=== PATIENT | male | born 1960 | race Two or more races ===

== ENCOUNTER 2016-07-21 11:49 | Emergency (ER) | payer OTHER ==
[~2016-07-21] VITALS: Ht 177.8 cm; Wt 86.2 kg
[2016-07-21 12:04] VITALS: BP 145/94
[2016-07-21] MEDS ORDERED: ONDANSETRON HCL 4 MG/2 ML VIAL ONE (12:08)
[2016-07-21] MEDS ORDERED: ONDANSETRON HCL 4 MG/2 ML VIAL IV ONE (12:15)
[2016-07-21] MEDS ORDERED: DIAZEPAM 5 MG/ML 2ML SYRG IV ONE (12:30)
[2016-07-21] MEDS ORDERED: SODIUM CHLORIDE 0.9% 1,000 ML IV ONE (12:30)
[2016-07-21 14:14] LABS: Basophils # (auto) 0 uL; Eosinophils # (auto) 0 uL; Eosinophils % (auto) 0.1 % (0.0-7.0); Lymphocytes # (auto) 1.2 uL; Lymphocytes % (auto) 9.7 % (10.0-50.0); Mean Corpuscular Hemoglobin 30.3 pg (28.0-32.0); Mean Corpuscular Hgb Conc. 33.4 g/dL (32.0-36.0); Mean Corpuscular Volume 90.9 fL (80.0-100.0); Mean Platelet Volume 9.4 fL (7.4-10.4); Monocytes # (auto) 0.5 uL; Monocytes % (auto) 4.3 % (0.0-12.0); Neutrophils # (auto) 10.8 uL; Neutrophils % (auto) 85.9 % (37.0-80.0); Platelet Count (auto) 219 10^3/uL (140-450); Red Cell Distribution Width 12.7 % (11.6-16.0); White Blood Cell 12.6 10^3/uL (4.4-10.8)
[2016-07-21 15:57] LABS: BUN/Creatinine Ratio 14.3; Calcium 8.2 mg/dL (8.5-10.1); Potassium 3.8 mmol/L (3.5-5.1)
[2016-07-21 15:59] LABS: Bilirubin, Total 0.6 mg/dL (0.2-1.0); Total Protein 7.4 g/dL (6.4-8.2)
[2016-07-21] MEDS ORDERED: cefTRIAXone 1GM/50ML D5W 50 ML IV ONE (16:15)
== END 2016-07-21 16:56 | disposition home or self-care (01) ==
LOC: EEVIPCON 11:52 → ER 11:52 → EDBD 11:52 → ER 16:56
DX: E86.0 Dehydration (principal); R42 Dizziness and giddiness; J20.9 Acute bronchitis, unspecified; R53.1 Weakness; R61 Generalized hyperhidrosis
CPT/HCPCS: 36415; 70551; 80053; 82150; 83690; 83735; 84484; 85025; 96361; 96365; 96375; 99285; J0696; J2405; J3360; J7030

== ENCOUNTER → 2019-09-23 | Outpatient (CLI) | payer BC ==
[2019-09-23 12:58] LABS: Alcohol, Urine < 3.0 mg/dL (0-5); Amphetamine Screen, Urine NEGATIVE (NEGATIVE); Barbiturate Scree,Urine NEGATIVE (NEGATIVE); Benzodiazephine Screen, Urine NEGATIVE (NEGATIVE); Cannabinoid Screen, Urine NEGATIVE (NEGATIVE); Cocaine Screen, Urine NEGATIVE (NEGATIVE); Opiate Scree,Urine NEGATIVE (NEGATIVE); Phencyclidine Screen, Urine NEGATIVE (NEGATIVE)
== END | disposition home or self-care (01) ==
LOC: LAB 12:38
PROVIDERS: ATTEND Pathology Anatomic Pathology & Clinical Pathology
DX: Z02.1 Encounter for pre-employment examination (principal)
CPT/HCPCS: 80307

== ENCOUNTER 2019-12-29 08:34 | Emergency (ER) | payer BC, OTHER ==
[~2019-12-29] VITALS: Ht 177.8 cm; Wt 86.2 kg
[2019-12-29 08:52] VITALS: BP 115/80
[2019-12-29 12:21] LABS: Hepatitis B Surface Antibody Positive
[2019-12-29 13:30] LABS: Hepatitis B Surface Antigen Negative (Negative)
== END 2019-12-29 11:41 | disposition home or self-care (01) ==
LOC: ER 08:34 → EEVIPCON 08:34 → ER 11:41
DX: T14.90XA Injury, unspecified, initial encounter (principal); W46.0XXA Contact with hypodermic needle, initial encounter; Y93.89 Activity, other specified; Y92.89 Other specified places as the place of occurrence of the external cause; Y99.8 Other external cause status
CPT/HCPCS: 36415; 86703; 86706; 86803; 87340

== ENCOUNTER 2020-04-29 12:05 | Outpatient (CLI) | payer BC, OTHER ==
[~2020-04-29] VITALS: Ht 30.5 cm; Wt 0.5 kg
[2020-04-29] MEDS ORDERED: BAMLANIVIMAB 700MG/200ML 200 ML IV ONE (12:30)
[2020-05-02] MEDS ORDERED: IOHEXOL 350 MG/ML 100ML IJ ONE (12:44)
== END 2020-04-29 15:15 | disposition home or self-care (01) ==
LOC: ER 12:05
PROVIDERS: ATTEND Internal Medicine
DX: Z20.828 Contact with and (suspected) exposure to other viral communicable diseases (principal); Z98.890 Other specified postprocedural states; Z79.899 Other long term (current) drug therapy

== ENCOUNTER → 2020-05-02 | Emergency (ER) | payer BC ==
[~2020-05-02] VITALS: Ht 30.5 cm; Wt 0.5 kg
[~2020-05-02] MED LIST: REMDESIVIR 100 MG in SODIUM CHL 0.9% 250 ML IV SCH; REMDESIVIR 200 MG in NS 210ml LOADING DOSE ADULT IV ONE
[2020-05-02 11:16] LABS: Basophils # (auto) 0 10 ^3/uL (0-0.2); Basophils % (auto) 0.5 % (0.0-2.0); Eosinophils # (auto) 0 10 ^3/uL (0-0.8); Eosinophils % (auto) 0.1 % (0.0-7.0); Hematocrit 39.8 % (41.0-53.0); Hemoglobin 13.6 g/dL (13.5-17.5); Lymphocytes # (auto) 2.3 10 ^3/uL (0.4-5.4); Lymphocytes % (auto) 23.8 % (10.0-50.0); Mean Corpuscular Hemoglobin 30.7 pg (28.0-32.0); Mean Corpuscular Hgb Conc. 34.1 g/dL (32.0-36.0); Mean Corpuscular Volume 90.1 fL (80.0-100.0); Monocytes # (auto) 1.1 10 ^3/uL (0-1.3); Monocytes % (auto) 11.1 % (0.0-12.0); Neutrophils # (auto) 6.1 10 ^3/uL (1.6-8.6); Neutrophils % (auto) 64.5 % (37.0-80.0); Nucleated Red Blood Cells % 0.1 %; Platelet Count (auto) 196 10^3/uL (140-450); Red Blood Cells 4.42 10^6/uL (4.5-5.90); Red Cell Distribution Width 12.6 % (11.8-14.3); White Blood Cell 9.5 10^3/uL (4.4-10.8)
[2020-05-02 11:38] LABS: Albumin 3.4 g/dL (3.4-5.0); Calcium 9.4 mg/dL (8.5-10.1); Magnesium 2.3 mg/dL (1.6-2.6); Potassium 3.9 mmol/L (3.5-5.1)
[2020-05-02 11:47] LABS: BUN/Creatinine Ratio 23.4; Bilirubin, Total 0.5 mg/dL (0.2-1.0); CRP High Sensitivity 3.12 mg/dL (< 0.3); Total Protein 7.9 g/dL (6.4-8.2)
[2020-05-02 11:58] LABS: Partial Thromboplastin Time 22.6 sec (23.0-31.2)
[2020-05-02 12:19] VITALS: BP 138/92
== END | disposition home or self-care (01) ==
LOC: ER 10:02 → EEVIPCON 10:02
DX: U07.1 COVID-19 (principal)
CPT/HCPCS: 36415; 80053; 82728; 83036; 83615; 83735; 84443; 85025; 85379; 85610; 85730; 86141; 96365; 99284; J7050

== ENCOUNTER → 2020-05-03 | Outpatient (CLI) | payer BC ==
[~2020-05-03] VITALS: Ht 30.5 cm; Wt 0.5 kg
[~2020-05-03] MED LIST changes: +REMDESIVIR 100 MG in SODIUM CHL 0.9% 250 ML IV ONE; -REMDESIVIR 100 MG in SODIUM CHL 0.9% 250 ML IV SCH; -REMDESIVIR 200 MG in NS 210ml LOADING DOSE ADULT IV ONE
[2020-05-03 14:15] VITALS: BP 141/80
[2020-05-03 15:15] VITALS: BP 143/81
--- NOTE | 2020-05-03 15:30 | NUR ---
DISCHARGE PT DECLINED OBSERVATION PERIOD S/P INFUSION.
--- NOTE | 2020-05-03 15:45 | NUR ---
INFUSION SUMMARY 1353 - PHARM CONTACTED TO [facility] INFUSION. 1358 - PT A&O X4, AMBULATORY, RESPIRATIONS EVEN AND NONLABORED, NO SOB. PT EVALUATED AND MEETS CRITERIA FOR INFUSION. CONSENTS SIGNED. PROVIDER AT BEDSIDE FOR PRE INFUSION EVALUATION. PT BASELINE VITALS OBTAINED, VSS, 20 G IV TO RIGHT A/C. 1415 - INFUSION READY AND STARTED. WILL CONTINUE TO MONITOR PT FOR ALLERGIC/ADVERSE REACTIONS. 1515 - INFUSION DC'D. VSS, RESPIRATIONS EVEN AND NONLABORED. NO SS OF ALLERGIC/ADVERSE REACTIONS. WILL CONTINUE TO MONITOR. 1530- PT DISCHARGED AND IV DC'D. IV REMOVED, CATHETER INTACT, NO TRAUMA TO SITE. A&OX4, VS TO BASELINE, RESPIRATIONS EVEN AND NONLABORED. PT EDUCATED ON COVID PRECAUTIONS, TO MONITOR FOR ALLERGIC/ADVERSE REACTIONS, AND TO SELF-ISOLATE. PT ADVISED TO RETURN TO ED IF PT EXPERIENCES S/S OF ALLERGIC/ ACTIONS OR IF CONDITION WORSENS.
== END | disposition home or self-care (01) ==
LOC: ER 14:48
PROVIDERS: ATTEND Internal Medicine
DX: Z45.1 Encounter for adjustment and management of infusion pump (principal)

== ENCOUNTER 2020-05-04 09:08 | Outpatient (CLI) | payer BC ==
[2020-05-04] MEDS ORDERED: REMDESIVIR 100 MG in SODIUM CHL 0.9% 250 ML IV ONE (10:00)
== END 2020-05-04 10:55 | disposition home or self-care (01) ==
LOC: ER 09:08
PROVIDERS: ATTEND Internal Medicine
DX: U07.1 COVID-19 (principal); I10 Essential (primary) hypertension

== ENCOUNTER 2020-05-05 08:57 | Outpatient (CLI) | payer BC ==
[~2020-05-05] VITALS: Ht 30.5 cm; Wt 0.5 kg
[2020-05-05 09:05] VITALS: BP 134/83
[2020-05-05 09:20] VITALS: BP 142/93
[2020-05-05 09:42] VITALS: BP 141/96
[2020-05-07] MEDS ORDERED: REMDESIVIR 100 MG in SODIUM CHL 0.9% 250 ML IV SCH (15:00)
== END 2020-05-05 09:44 | disposition home or self-care (01) ==
LOC: ER 08:57
PROVIDERS: ATTEND Internal Medicine
DX: U07.1 COVID-19 (principal); I10 Essential (primary) hypertension

== ENCOUNTER → 2020-10-19 | Outpatient (CLI) | payer BC | END | disposition home or self-care (01) | LOC: LAB 07:18 | PROVIDERS: ATTEND Internal Medicine | DX: Z20.822 Contact with and (suspected) exposure to COVID-19 (principal) | CPT/HCPCS: C9803; U0003 ==

== ENCOUNTER → 2020-12-14 | Outpatient (CLI) | payer BC | END | disposition home or self-care (01) | LOC: LAB 06:38 | PROVIDERS: ATTEND Internal Medicine | DX: Z20.822 Contact with and (suspected) exposure to COVID-19 (principal) | CPT/HCPCS: C9803; U0003 ==

== ENCOUNTER → 2021-02-18 | Outpatient (CLI) | payer BC | END | disposition home or self-care (01) | LOC: LAB 07:12 | PROVIDERS: ATTEND Internal Medicine | DX: Z20.822 Contact with and (suspected) exposure to COVID-19 (principal) | CPT/HCPCS: C9803; U0003 ==

== ENCOUNTER → 2021-05-31 | Outpatient (CLI) | payer BC | END | disposition home or self-care (01) | LOC: LAB 13:56 | PROVIDERS: ATTEND Internal Medicine | DX: Z20.822 Contact with and (suspected) exposure to COVID-19 (principal) | CPT/HCPCS: 36415; 87426 ==

== ENCOUNTER → 2021-06-24 | Outpatient (CLI) | payer BC | END | disposition home or self-care (01) | LOC: LAB 08:17 | PROVIDERS: ATTEND Internal Medicine | DX: Z20.822 Contact with and (suspected) exposure to COVID-19 (principal) | CPT/HCPCS: 36415; 87426 ==

== ENCOUNTER → 2021-07-08 | Outpatient (CLI) | payer BC | END | disposition home or self-care (01) | LOC: LAB 07:42 | PROVIDERS: ATTEND Internal Medicine | DX: Z20.822 Contact with and (suspected) exposure to COVID-19 (principal) | CPT/HCPCS: 36415; 87426 ==

== ENCOUNTER → 2021-07-22 | Outpatient (CLI) | payer BC | END | disposition home or self-care (01) | LOC: LAB 07:27 | PROVIDERS: ATTEND Internal Medicine | DX: Z20.822 Contact with and (suspected) exposure to COVID-19 (principal) | CPT/HCPCS: 36415; 87426 ==

== ENCOUNTER → 2021-09-30 | Outpatient (CLI) | payer BC | END | disposition home or self-care (01) | LOC: LAB 07:56 | PROVIDERS: ATTEND Internal Medicine | DX: Z20.822 Contact with and (suspected) exposure to COVID-19 (principal) | CPT/HCPCS: 36415 ==

== ENCOUNTER 2021-12-30 17:44 | Emergency (ER) | payer BC ==
[~2021-12-30] VITALS: Ht 177.8 cm; Wt 86.4 kg
[2021-12-30 18:00] VITALS: BP 121/93
[2021-12-30] MEDS ORDERED: ONDANSETRON HCL 4 MG/2 ML VIAL IV ONE (18:00)
[2021-12-30] MEDS ORDERED: SODIUM CHLORIDE 0.9% 1,000 ML IV ONE (18:00)
[2021-12-30] MEDS ORDERED: MECLIZINE HCL 25 MG TAB PO ONE (18:00)
[2021-12-30 18:50] LABS: Calcium 8.7 mg/dL (8.5-10.1); Potassium 3.5 mmol/L (3.5-5.1)
[2021-12-30 18:56] LABS: Albumin 3.5 g/dL (3.4-5.0); BUN/Creatinine Ratio 16.8; Bilirubin, Total 0.6 mg/dL (0.2-1.0); Magnesium 2.4 mg/dL (1.6-2.6)
== END 2021-12-30 19:00 | disposition left against medical advice (07) ==
LOC: EDBD 17:44 → ER 17:44 → EEVIPCON 17:44 → ER 19:00
DX: R42 Dizziness and giddiness (principal); R61 Generalized hyperhidrosis; Z53.29 Procedure and treatment not carried out because of patient's decision for other reasons
CPT/HCPCS: 36415; 80053; 83735; 84484; 85025; 93005; 96361; 96374; 99284; J2405; J7030; J8597

== ENCOUNTER → 2024-12-17 | Day surgery (SDC) | payer OTHER ==
[2024-12-05 10:37] LABS: Hematocrit 40.8 % (41.0-53.0); Hemoglobin 13.7 g/dL (13.5-17.5); Mean Corpuscular Hemoglobin 31.0 pg (28.0-32.0); Mean Corpuscular Volume 92.1 fL (80.0-100.0); Nucleated Red Blood Cells % 0.2 %
[2024-12-05 10:38] LABS: Urine Protein, UAD TRACE (Negative)
[2024-12-05 10:49] LABS: INR 0.97 (0.9-1.15); Partial Thromboplastin Time 29.6 SEC (24.5-34.5); Prothrombin Time 10.3 sec (9.3-11.8)
[2024-12-05 10:57] LABS: Alanine Aminotransferase 20 U/L (7-40); Alkaline Phosphatase 97 U/L (46-116); Anion Gap 9 (5-15); BUN/Creatinine Ratio 13.2 (10.0-20.0); Blood Urea Nitrogen 17 mg/dL (9-23); Calcium 9.9 mg/dL (8.7-10.4); Carbon Dioxide 29 mmol/L (20-31); Chloride 103 mmol/L (98-107); Potassium 4.0 mmol/L (3.5-5.1); Sodium 141 mmol/L (136-145); Total Protein 7.2 g/dL (5.7-8.2)
[2024-12-05 10:58] LABS: Albumin 4.7 g/dL (3.2-4.8); Bilirubin, Total 0.5 mg/dL (0.2-1.0); Glucose 130 mg/dL (74-106)
--- NOTE | 2024-12-05 19:29 | DVH ---
EXAM: XY CHEST PORTABLE CLINICAL HISTORY: PRE-OP TECHNIQUE: Single PA view of the chest WID: COMPARISON: None FINDINGS: Lines and tubes: None Chest: The heart size and pulmonary vasculature is within normal limits. No pleural effusion, pneumothorax, or consolidation. The osseous structures are grossly intact. IMPRESSION: No acute cardiopulmonary abnormality.
[~2024-12-17] VITALS: Ht 177.8 cm; Wt 86.2 kg
[~2024-12-17] MED LIST changes: +LIDOCAINE VISCOUS 2% 15ML UD ONE; +MIDAZOLAM HCL 2MG/2ML 2ml VIAL (1mg/ml) ONE; +ONDANSETRON HCL 4 MG/2 ML VIAL ONE; +PROPOFOL 10 MG/ML 20 ML IV ONE; -REMDESIVIR 100 MG in SODIUM CHL 0.9% 250 ML IV ONE; +SIMETHICONE 40 MG/0.6 ML ORAL DROP ONE; +fentaNYL CITRATE 100 MCG/2 ML VL ONE
[2024-12-17 08:45] VITALS: PULSE 55; RESP 11; O2SAT 100
--- NOTE | 2024-12-17 08:52 | DVHOP2 ---
Operative Report DATE OF OPERATION: 12/17/24 PROCEDURE: Upper Endoscopy with biopsy. PREOPERATIVE INDICATION: The patient is a 62 -year-old male undergoing endoscopy for evaluation of chronic GERD POSTOPERATIVE DIAGNOSES: 1. 0.5-1 cm sliding-type hiatal hernia with no significant erosive esophagitis at this time 2. Mild gastritis and gastropathy involving the antrum and also the proximal stomach PROCEDURE PERFORMED BY: Sanchez Argaon GI NURSE: Lisa SCOPE: Olympus videoendoscope. ASA CLASS: 2. PREOPERATIVE MEDICATIONS: Mac Dr. Justo ceja PROCEDURE IN DETAIL: After obtaining an informed consent, the patient was placed on left lateral decubitus position. The patient was then sedated with the above medications. A bite block was placed between his teeth. The endoscope was then passed through the oropharynx, into the esophagus, and through the stomach and pylorus up to the second and third part of the duodenum. The endoscope was then withdrawn. The 2nd and 3rd part of the duodenum and the duodenal bulb were normal. Duodenal biopsies were obtained The pre-pyloric and area antrum and distal body showed mild gastritis with some hyperemia erythema from which biopsies were obtained On retroflexion the fundus cardia and angularis were normal. There was an area of inflammation and gastropathy in the proximal stomach from which biopsies were also obtained The endoscope was then withdrawn into the distal esophagus where the patient had a 0.5-1 cm sliding-type hiatal hernia but no significant erosive esophagitis GE junction biopsies were obtained. The remaining distal and proximal esophagus and oropharynx were unremarkable The patient tolerated the procedure well without difficulty. COMPLICATIONS : None SPECIMENS: Duodenal biopsies Gastric biopsies GE junction biopsies DISPOSITION: Stable D/C to home PLAN: 1. Await for biopsy result 2. Will place pt on Protonix 40 mg p.o. daily or as needed 3. Trial of Carafate 1 g p.o. q.h.s. or twice a day as needed 4. Avoid NSAIDs aspirin smoking and alcohol 5. Outpatient follow up with me in 4-6 weeks to review results and discuss further management SANCHEZ ARAGON MD Dec 17, 2024 08:52
--- NOTE | 2024-12-17 08:58 | DVHOP2 ---
Operative Report DATE OF OPERATION: 12/17/24 PROCEDURE: Colonoscopy with hot snare polypectomy. PREOPERATIVE INDICATION: The patient is a 62 -year-old male undergoing colonoscopy for colon cancer screening and family history of colon polyps POSTOPERATIVE DIAGNOSES: 1. 3 mm benign-appearing sessile polyp was seen in the base of the cecum and this was removed completely via hot snare polypectomy 2. There were two other diminutive 1 mm benign-appearing cecal polyps that were also seen and removed by cold biopsy forceps 3. There were two benign-appearing diminutive rectosigmoid excrescences that were seen and removed by cold biopsy forceps 4. 1+ internal hemorrhoids otherwise completely normal colonoscopy examination up to the terminal ileum PROCEDURE PERFORMED BY: Sanchez Aragon M.D. SCOPE: Olympus videocolonoscope. ASA CLASS: 2 PREOPERATIVE MEDICATIONS: Dr. Justo Trejo PROCEDURE IN DETAIL: After obtaining an informed consent, the patient was placed on left lateral decubitus position. He was then sedated with the above medications. A rectal examination was performed that was normal. The colonoscope was then passed through the anus into the rectosigmoid and through the descending, transverse, and ascending colon up to the cecum with visualization of the appendiceal orifice, base of the cecum and the ileocecal valve. The colonoscope was then withdrawn. The distal 5-10 cm of the terminal ileum were normal In the base of the cecum there was a 3 mm superficially spreading sessile benign-appearing polyp that was seen and removed completely via hot snare polypectomy Two other adjacent benign-appearing diminutive 1 mm cecal polyps were seen and removed by cold biopsy forceps. There was no masses or diverticular disease Slightly limited study due to slightly poor prep especially in the base of the cecum however after careful irrigation and aspiration no other gross lesions were seen There was no colitis. In the rectosigmoid there were two diminutive benign- appearing excrescences that were removed by cold biopsy forceps On retroflexion and straight on view he had trace to 1+ internal hemorrhoids The patient tolerated the procedure well without difficulty. WITHDRAWAL TIME: 16 minutes QUALITY OF THE PREP: Sumter Bowel Prep score: 8. COMPLICATIONS : None SPECIMENS: 1. Cecal polyps 2. Rectosigmoid diminutive polyps DISPOSITION: Transfer back to the floor D/C to home PLAN: 1. Repeat colonoscopy base on biopsy result likely in 2-3 years 2. Resume GI soft diet advance as tolerated 3. Hold aspirin NSAIDs for 5-7 days 4. Outpatient follow up with me in 2-4 weeks to review results and discuss further management SANCHEZ ARAGON MD Dec 17, 2024 08:58
[2024-12-17 09:00] VITALS: PULSE 64; RESP 14; O2SAT 93
[2024-12-17 09:20] VITALS: BP 126/93; PULSE 64; RESP 13; RESP 14; O2SAT 93
== END | disposition home or self-care (01) ==
LOC: EDBD 06:48 → GI 06:48
PROVIDERS: ATTEND Internal Medicine Gastroenterology
DX: D12.0 Benign neoplasm of cecum (principal); K62.1 Rectal polyp; K21.00 Gastro-esophageal reflux disease with esophagitis, without bleeding; K29.50 Unspecified chronic gastritis without bleeding; K31.89 Other diseases of stomach and duodenum; R10.9 Unspecified abdominal pain; K44.9 Diaphragmatic hernia without obstruction or gangrene; K63.5 Polyp of colon; K64.8 Other hemorrhoids; Z83.719 Family history of colon polyps, unspecified; K64.0 First degree hemorrhoids
CPT/HCPCS: 36415; 43239; 45380; 45385; 71045; 80053; 81001; 85025; 85610; 85730; 88305; 88342; J1100; J2250; J2405; J2704; J3010; J7030

== ENCOUNTER 2025-04-15 07:09 | Outpatient (CLI) | payer OTHER ==
[2025-04-15] MEDS ORDERED: METOPROLOL TARTRATE 25 MG TAB ONE (07:32)
[2025-04-15] MEDS ORDERED: NITROGLYCERIN 0.4 MG SL TAB SL ONE (07:33)
[2025-04-15] MEDS ORDERED: IOHEXOL 350 MG/ML 100ML IJ ONE (07:53)
== END 2025-04-15 17:00 | disposition home or self-care (01) ==
LOC: XYW 07:09
PROVIDERS: ATTEND Emergency Medicine
DX: Z53.9 Procedure and treatment not carried out, unspecified reason (principal)